=== PATIENT | female | born 1970 | race Caucasian/White ===

== ENCOUNTER 2017-10-27 18:15 | Emergency (ER) | payer OTHER ==
[2017-10-27 18:44] VITALS: BP 133/88
--- NOTE | 2017-10-27 18:45 | UC ---
Ear Complaint HPI - HPI Summary HPI Summary: Pt presents with left ear pain for 3 days. She tells me that she went swimming 4 days ago and after that developed pain in her left ear and feels that there is fluid in there. No decreased hearing. Denies fever, chills, sinus symptoms, sore throat, or cough. - History of Current Complaint Chief Complaint: UCEar Stated Complaint: EAR PAIN C Time Seen by Provider: 10/27/17 18:45 Hx Obtained From: Patient Onset/Duration: Gradual Onset Severity Initially: Mild Severity Currently: Mild Pain Intensity: 4 Pain Scale Used: 0-10 Numeric - Allergies/Home Medications Allergies/Adverse Reactions: Allergies Allergy/AdvReac Type Severity Reaction Status Date / Time No Known Allergies Allergy Verified 10/27/17 18:33 Home Medications: Home Medications Cholecalciferol CAP/TAB(NF) [Vitamin D3 CAP/TAB (NF)] 5,000 unit PO DAILY [History Confirmed 10/27/17] Estradiol 0.5 mg PO DAILY 10/27/17 [History Confirmed 10/27/17] Ibuprofen TAB* [Motrin TAB* 800 MG] 800 mg PO ONCE 10/27/17 [History Confirmed 10/27/17] Lisinopril TAB* [Prinivil TAB*] 20 mg PO BID 10/27/17 [History Confirmed ] Milnacipran(NF) [Savella(NF)] 100 mg PO BID 10/27/17 [History Confirmed 10/27/17 ] Omeprazole CAP* [Prilosec CAP* 20 MG] 40 mg PO DAILY 10/27/17 [History Confirmed 10/27/17] Oxybutynin TAB* [Ditropan TAB*] 5 mg PO DAILY 10/27/17 [History Confirmed ] Pravastatin Sodium 40 mg PO DAILY 10/27/17 [History Confirmed 10/27/17] busPIRone TAB* [Buspar TAB *] 15 mg PO DAILY 10/27/17 [History Confirmed ] PMH/Surg Hx/FS Hx/Imm Hx Previously Healthy: Yes Endocrine History: Dyslipidemia Cardiovascular History: Hypertension GI/ History: Gastroesophageal Reflux Psychological History: Anxiety, Depression - Surgical History Surgical History: Yes Surgery Procedure, Year, and Place: hysterectomy 2008. c- section 1990, 1995. gallbladder 2004 - Family History Known Family History: Positive: Unknown - Social History Occupation: Employed Full-time Lives: With Family Alcohol Use: Occasionally Substance Use Type: None Smoking Status (MU): Never Smoked Tobacco Review of Systems Constitutional: Negative Skin: Negative Eyes: Negative ENT: Ear Ache Respiratory: Negative Cardiovascular: Negative Gastrointestinal: Negative Musculoskeletal: Negative Neurological: Negative Psychological: Negative All Other Systems Reviewed And Are Negative: Yes Physical Exam Triage Information Reviewed: Yes Appearance: Well-Appearing, No Pain Distress, Obese Vital Signs: Initial Vital Signs Temp 98.8 F 10/27/17 18:39 Pulse 106 10/27/17 18:39 Resp 16 10/27/17 18:39 BP 133/88 10/27/17 18:39 Pulse Ox 99 10/27/17 18:39 Vital Signs Reviewed: Yes Eyes: Positive: Conjunctiva Clear. Negative: Conjunctiva Inflamed, Discharge ENT: Positive: Hearing grossly normal, Pharynx normal, TMs normal - Right, Uvula midline, Other - Left ear with impacted cerumen occluding view of TM. Negative: Pharyngeal erythema, Nasal congestion, Nasal drainage, TM bulging - Right, TM dull - Right, TM red - Right, Hoarse voice, Sinus tenderness Neck: Positive: Supple, Nontender, No Lymphadenopathy Respiratory: Positive: Lungs clear, Normal breath sounds, No respiratory distress, No accessory muscle use Cardiovascular: Positive: RRR, No Murmur, Pulses Normal Neurological: Positive: Alert Psychological: Positive: Age Appropriate Behavior Skin: Negative: rashes Ear Complaint Course/Dx - Course Course Of Treatment: Left ear irrigated and cerumen removed. White purulent drainage around TM. Left ear otitis externa - Differential Dx/Diagnosis Provider Diagnoses: Left otitis externa Discharge - Discharge Plan Condition: Stable Disposition: HOME Prescriptions: Neomyc/Polym/HC 1% OTIC SUSP* [Cortisporin Otic Susp 1%*] 4 drop LEFT EAR TID # 1 btl Patient Education Materials: Otitis Externa (DC) Referrals: No Primary Care Phys,NOPCP [Primary Care Provider] - Additional Instructions: If you develop a fever, shortness of breath, chest pain, new or worsening symptoms - please call your PCP or go to the ED. Your blood pressure was high at todays visit. Please see your primary provider within 4 weeks for recheck and re-evaluation.
[2017-10-27] MEDS ORDERED: Neomyc/Polym/HC 1% OTIC SUSP* **OTIC LEFT EAR ONE (19:08)
== END 2017-10-27 19:25 | disposition home or self-care (01) ==
LOC: UCEAST 18:15
DX: H60.92 Unspecified otitis externa, left ear (principal); H61.23 Impacted cerumen, bilateral; E78.5 Hyperlipidemia, unspecified; I10 Essential (primary) hypertension; K21.9 Gastro-esophageal reflux disease without esophagitis; F41.9 Anxiety disorder, unspecified; F32.9 Major depressive disorder, single episode, unspecified
CPT/HCPCS: 69209; 99202; A9270-GY; G0463